=== PATIENT | male | born 1945 | race Caucasian/White ===

== ENCOUNTER 2017-06-21 12:43 | Emergency (ER) | payer BC ==
[~2017-06-21] VITALS: Ht 175.3 cm; Wt 86.2 kg
[~2017-06-21 12:43] MED LIST: MILK THISTLE1 GM; VIT C; VIT D; [UNRECOGNIZED DRUG - OTHER] PO
[2017-06-21] MEDS ORDERED: Norco 5-325 Ta1 EACH PO (17:19)
== END 2017-06-21 17:26 | disposition home or self-care (01) ==
LOC: ER 12:43
DX: S61.215A Laceration without foreign body of left ring finger without damage to nail, initial encounter (principal); S61.213A Laceration without foreign body of left middle finger without damage to nail, initial encounter; Z23 Encounter for immunization; Z87.891 Personal history of nicotine dependence; W26.8XXA Contact with other sharp object(s), not elsewhere classified, initial encounter
CPT/HCPCS: 12004; 73130; 90714; 99283

== ENCOUNTER 2020-08-23 09:33 | Day surgery (SDC) | payer BC ==
[~2020-08-23] VITALS: Ht 175.3 cm; Wt 81.7 kg
[~2020-08-23 09:33] MED LIST changes: +Norco 5-325 Ta1 EACH PO
== END 2020-08-23 11:55 | disposition home or self-care (01) ==
LOC: ORSCSDS 09:33
PROVIDERS: Surgery
PROC: 0DBN8ZX Excision of Sigmoid Colon, Via Natural or Artificial Opening Endoscopic, Diagnostic (ICD-10-PCS; principal; 2020-08-23 11:00)
PROC: 0DBH8ZX Excision of Cecum, Via Natural or Artificial Opening Endoscopic, Diagnostic (ICD-10-PCS; principal; 2020-08-23 11:00)
DX: Z12.11 Encounter for screening for malignant neoplasm of colon (principal); Z86.010 Personal history of colon polyps; D12.0 Benign neoplasm of cecum; D12.5 Benign neoplasm of sigmoid colon; J44.9 Chronic obstructive pulmonary disease, unspecified; Z87.891 Personal history of nicotine dependence; G47.33 Obstructive sleep apnea (adult) (pediatric); Z79.899 Other long term (current) drug therapy
CPT/HCPCS: 88305; J0461; J2405; J2704; J7120

== ENCOUNTER 2021-11-20 07:17 | Day surgery (SDC) | payer OTHER ==
[~2021-11-20] VITALS: Ht 175.3 cm; Wt 88.5 kg
--- NOTE | 2021-11-20 10:05 | NUR ---
Ambulatory in Day Surgery History, Chart, Medications and Allergies reviewed before start of procedure. Lungs clear T/O to Auscultation. Pre-Op teaching done. Pt verbalizes understanding. Patient States Post-Procedure ride home has been arranged.
[2021-11-20] MEDS ORDERED: ACET325 PO (10:20)
[2021-11-20] MEDS ORDERED: TURMERIC ROOT5000 GM PO (10:20)
[2021-11-20] MEDS ORDERED: NAPR220 PO (10:21)
[2021-11-20] MEDS ORDERED: SIMBRINZA 1%-0.28 ML BOTHEYES (10:22)
[2021-11-20] MEDS ORDERED: LATA.005SO BOTHEYES (10:22)
--- NOTE | 2021-11-20 13:20 | NUR ---
Patient up to Ambulate independently. Gait steady. Discharge instructions reviewed with patient. Patient verbalizes understanding. Copy given to patient to take home, WELL S/O. Patient States Post-Procedure ride home has been arranged. Discharged via wheelchair to private car for ride home.
== END 2021-11-20 13:20 | disposition home or self-care (01) ==
LOC: ORSCMMR 07:17 → ORD 09:00 → ORSCMMR 13:20
PROVIDERS: Surgery
PROC: 0WUF0JZ Supplement Abdominal Wall with Synthetic Substitute, Open Approach (ICD-10-PCS; principal; 2021-11-20 09:00)
DX: K42.9 Umbilical hernia without obstruction or gangrene (principal); J44.9 Chronic obstructive pulmonary disease, unspecified; F41.9 Anxiety disorder, unspecified; G47.33 Obstructive sleep apnea (adult) (pediatric); Z79.899 Other long term (current) drug therapy
CPT/HCPCS: A9270; C1781; J0690; J1100; J1885; J2250; J2405; J2704; J3010; J7120

== ENCOUNTER 2024-10-18 05:50 | Observation (INO) | payer OTHER ==
[~2024-10-18] VITALS: Ht 170.2 cm; Wt 83.4 kg
[2024-10-18] VITALS (12 sets, daily range): BP systolic 97–133; BP diastolic 45–91
[~2024-10-18 05:50] MED LIST changes: +ACET325 PO; +ALEVE220 MG PO; +COLLAGEN SKIN1 EACH; +FISH OIL 1,0001 EA10 PO; +IBUP200 PO; +LATA.005SO BOTHEYES; +LATANOPROST2.5 M3 BOTHEYES; +MELO7.5 PO; +Milk Thistle175 M1; +NAPR220 PO; +SIMBRINZA 1%-0.28 M1 BOTHEYES; +SIMBRINZA 1%-0.28 ML BOTHEYES; +SLEEP AID PO; +TAMS.4ER PO; +TRAZ50 PO; +TURMERIC ROOT5000 GM PO; +TURMERIC500 M2 PO; +VITAMIN B-122000 MC1 PO; +Vitamin D1000 UNI1 PO
[2024-10-18] MEDS ORDERED: Ropivacaine 0.5% HCl/Pf 123.125 MG,EPINEPHrine HCL 0.25 MG,Ketorolac Tromethamine 15 MG... INFIL SCH (06:15)
[2024-10-18] MEDS ORDERED: CeFAZolin Sodium 2,000 MG in NS 100 ML IV SCH ×2 (06:15→15:45)
[2024-10-18] MEDS ORDERED: OxyCODONE HCL 10 MG TABCR PO SCH (06:15)
[2024-10-18] MEDS ORDERED: Acetaminophen 500 MG Tab PO SCH ×2 (06:15→16:00)
[2024-10-18] MEDS ORDERED: Chlorhexidine Mouth Care 15 ML UDC MT SCH (06:15)
[2024-10-18] MEDS ORDERED: Lactated Ringer's 1,000 ML IV SCH ×2 (06:15→08:00)
[2024-10-18] MEDS ORDERED: Tranexamic Acid 100 ML IV SCH (06:44)
[2024-10-18] MEDS ORDERED: Metoclopramide HCl 5MG / ML 2ML Vial ONE (06:47)
[2024-10-18] MEDS ORDERED: Ondansetron HCl 2 MG / ML 2ML Vial ONE (06:47)
[2024-10-18] MEDS ORDERED: Magnesium Sulfate 500 MG / ML 2ML Vial ONE (06:56)
[2024-10-18] MEDS ORDERED: propofoL 50 ML IV ONE (06:56)
[2024-10-18] MEDS ORDERED: Lidocaine HCl 2% 20 ML MDV ONE (07:01)
[2024-10-18] MEDS ORDERED: HYDROmorphone HCl/Pf 1MG SYR ONE (07:02)
[2024-10-18] MEDS ORDERED: Midazolam HCl 1MG / ML 2ML Vial ONE (07:02)
[2024-10-18] MEDS ORDERED: Labetalol HCL 5 MG/ML 4ML Injection (Single Dose) IV PRN (07:10)
[2024-10-18] MEDS ORDERED: FentaNYL Citrate 50 MCG/ML 2 ML Injection IV PRN ×2 (07:10→07:15)
[2024-10-18] MEDS ORDERED: HYDROmorphone HCl/Pf 1MG SYR IV PRN ×2 (07:10→07:50)
[2024-10-18] MEDS ORDERED: Metoclopramide HCl 5MG / ML 2ML Vial IV PRN ×2 (07:10→07:50)
[2024-10-18] MEDS ORDERED: Ondansetron HCl 2 MG / ML 2ML Vial IV PRN ×2 (07:10→07:50)
[2024-10-18] MEDS ORDERED: Magnesium Hydroxide Conc 10 ML UDC PO PRN (07:45)
[2024-10-18] MEDS ORDERED: ePHEDrine Sulfate 50 MG/ML 1ML Injection ONE (07:52)
[2024-10-18] MEDS ORDERED: OxyCODONE HCL 5 MG TAB PO PRN ×2 (07:55)
[2024-10-18] MEDS ORDERED: DiphenhydrAMINE HCL 25 MG Cap PO PRN (07:55)
[2024-10-18] MEDS ORDERED: Bisacodyl 10 MG Supp PR PRN (07:55)
[2024-10-18] MEDS ORDERED: Promethazine HCl 25 MG Tab PO PRN (07:55)
[2024-10-18] MEDS ORDERED: Prochlorperazine Edisylate 10 mg Vial IV PRN (08:00)
[2024-10-18] MEDS ORDERED: Tamsulosin HCl 0.4 MG Cap PO SCH (09:00)
[2024-10-18] MEDS ORDERED: Aspirin 81 MG Chew PO SCH (09:00)
[2024-10-18] MEDS ORDERED: Docusate Sodium 100 MG Cap PO SCH (09:00)
[2024-10-18] MEDS ORDERED: Ketorolac Tromethamine 30mg Vial ONE (10:10)
--- NOTE | 2024-10-18 10:25 | NUR ---
POST OP ARRIVAL TO UNIT VIA HOSPITAL BED. ALERT, ORIENTED, PLEASANT. LUNGS CLEAR. ABLE TO WIGGLE TOES & PUMP ANKLES. R HIP w/ CLEAR MESH DRSG. NO DRNG NOTED. PPP. DENIES N/V OR PAIN.
[2024-10-18] MEDS ORDERED: Ketorolac Tromethamine 15mg Vial IV SCH (12:00)
[2024-10-18] MEDS ORDERED: ACET500 PO (15:02)
[2024-10-18] MEDS ORDERED: OXYC5 PO (15:03)
[2024-10-18] MEDS ORDERED: ASPI81CH PO (15:03)
--- NOTE | 2024-10-18 16:23 | NUR ---
DISCHARGE PT HAS WORKED w/ THERAPY. PAIN WELL CONTROLLED. EATING, DRINKING, & VOIDED x 1. POLAR PACK SENT w/ PT. ESCORTED OUT VIA W/C.
== END 2024-10-18 16:30 | disposition home or self-care (01) ==
LOC: MEDS 05:50 → SURS 05:50 → ORD 09:30 → EDSTATUS 09:30 → SURS 10:08 → MEDS 10:08 → SURS 10:11
PROVIDERS: ADMIT Orthopaedic Surgery
PROC: 0SR904Z Replacement of Right Hip Joint with Ceramic on Polyethylene Synthetic Substitute, Open Approach (ICD-10-PCS; principal; 2024-10-18 07:30)
DX: M16.11 Unilateral primary osteoarthritis, right hip (principal); F41.9 Anxiety disorder, unspecified; J44.9 Chronic obstructive pulmonary disease, unspecified; K21.9 Gastro-esophageal reflux disease without esophagitis; H91.90 Unspecified hearing loss, unspecified ear; G47.00 Insomnia, unspecified; Z96.611 Presence of right artificial shoulder joint; Z96.612 Presence of left artificial shoulder joint; G47.30 Sleep apnea, unspecified; F12.90 Cannabis use, unspecified, uncomplicated; Z85.46 Personal history of malignant neoplasm of prostate; Z86.69 Personal history of other diseases of the nervous system and sense organs; Z98.42 Cataract extraction status, left eye; Z98.41 Cataract extraction status, right eye; Z87.19 Personal history of other diseases of the digestive system; Z98.890 Other specified postprocedural states; Z87.891 Personal history of nicotine dependence; Z79.899 Other long term (current) drug therapy; Z99.89 Dependence on other enabling machines and devices; Z79.2 Long term (current) use of antibiotics
CPT/HCPCS: 72170; 97110; 97116; 97161; 97530; A9270; C1776; J0171; J0690; J0735; J1171; J1885; J2250; J2405; J2704; J2765; J2795; J3475; J7120